=== PATIENT | female | born 1985 | race Caucasian/White ===

== ENCOUNTER 2020-02-03 12:35 | Emergency (ER) | payer OTHER, SELFPAY ==
--- NOTE | ~2020-02-03 | XR_ITS ---
XR lumbar spine min 4V 02/03/2020 14:06 Indication: Status post fall. Low back pain. Procedure: 5 views lumbar spine Comparison: No prior studies for comparison. Findings: Vertebral body heights are maintained. Mild disc narrowing at L5-S1. No fracture, subluxati on or dislocation. Mild levocurvature of the lumbar spine. No evidence for spondylolisthesis. Sacral foramen are symmetric. Impression: 1: Mild lumbar spondylosis. Reviewed, dictated and finalized at location A. Impression: 1: Mild lumbar spondylosis.
--- NOTE | ~2020-02-03 | XR_ITS ---
XR elbow LT min 3V 02/03/2020 14:06 Indication: Left elbow pain after recent fall Procedure: 4 views left elbow Comparison: No prior studies for comparison. Findings: No acute fracture or traumatic malalignment. No significant joint effusion. There is a bone island in the radius. No foreign bodies. There are small ossific densities ventral to the joint spac e, likely loose bodies from degenerative change or remote trauma. Impression: 1: No acute bone or joint abnormality. Reviewed, dictated and finalized at location A. Impression: 1: No acute bone or joint abnormality.
--- NOTE | ~2020-02-03 | XR_ITS ---
XR shoulder LT min 2V 02/03/2020 14:06 INDICATION: Left shoulder pain after recent fall PROCEDURE: 4 views left shoulder COMPARISON: No prior studies for comparison. FINDINGS: Fracture, dislocation or subluxation is not identified. There are mild degenerative changes of the acromioclavicular joint. The soft tissues appear within normal limits. No foreign bodies are identified. IMPRESSION: 1: NO ACUTE BONE OR JOINT ABNORMALITY IDENTIFIED. Reviewed, dictated and finalized at location A.
[2020-02-03 12:42] VITALS: BP 152/100; PULSE 81; RESP 18; TEMP 36.6; O2SAT 100
--- NOTE | 2020-02-03 13:26 | ED.FALL ---
HPI - Fall General Chief Complaint: Fall Stated Complaint: FELL OFF PORCH THURS - BACK/ARM PAIN Time Seen by Provider: 02/03/20 12:50 Source: patient Mode of arrival: ambulatory Limitations: no limitations History of Present Illness HPI Narrative: Patient is a 34-year-old female who presents to emergency department for evaluation after falling off her porch 3 days prior patient notes aching pain worse with activity and movement has not been seen for this complaint is taken [id number] medications with minimal improvement. Patient denies head injury syncope loss of consciousness or other complaints Related Data Allergies Allergy/AdvReac Type Severity Reaction Status Date / Time No Known Allergies Allergy Verified 02/03/20 12:45 Review of Systems Review of Systems: All systems reviewed & are unremarkable except as noted in HPI and below PMFSH Surgical History Surgical History History of appendectomy Social History Social History (Updated 02/03/20 @ 13:27 by Kirk Scott PA-C) Smoking status: Current every day smoker Gender identity (if verbalized by the patient): Female Exam Narrative: Exam Narrative: GENERAL: Well-appearing, well-nourished, and in no acute distress. HEAD: Normocephalic, atraumatic. EYES: PERRLA and EOMI. ENT: Nares clear, no rhinorrhea or epistaxis. Mucous membranes moist. CHEST: Clear to auscultation. No respiratory distress. No wheezes rales or rhonchi HEART: Regular rate and rhythm. No murmur heard. Normal peripheral pulses. EXTREMITIES: Tenderness of the left shoulder and left elbow joint no deformities noted. Small abrasion to the mid forearm. Midline tenderness of the lumbar spine no cervical or thoracic tenderness SKIN: Warm, dry, no rash. NEURO: No focal deficits. Alert and oriented x3. Cranial nerves II through XII grossly intact. normal speech and gait. PSYCH: Normal mood and affect. Course Course Emergency Course: Patient in the room in no distress aware of case findings treatment plan and diagnosis felt appropriate for outpatient reevaluation Vital Signs Vital signs: Vital Signs Temperature 97.8 F 02/03/20 12:42 Pulse Rate 81 02/03/20 12:42 Respiratory Rate 18 02/03/20 12:42 Blood Pressure 152/100 H 02/03/20 12:42 Pulse Oximetry 100 02/03/20 12:42 Temperature 97.8 F 02/03/20 12:42 Pulse Rate 81 02/03/20 12:42 Respiratory Rate 18 02/03/20 12:42 Blood Pressure 152/100 H 02/03/20 12:42 Pulse Oximetry 100 02/03/20 12:42 MDM - Fall MDM Narrative Medical decision making narrative: Patients injury or pain is consistent with musculoskeletal etiology. No signs of neurological or vascular compromise on exam. Compartments and tisues are soft without signs of compartment syndrome. Pain is felt appropriate for further evaluation on an outpatient basis. Imaging Data Radiologist's impression: ITS Impressions Shoulder X-Ray 02/03/20 14:09 IMPRESSION: 1: NO ACUTE BONE OR JOINT ABNORMALITY IDENTIFIED. Elbow X-Ray 02/03/20 14:10 Impression: 1: No acute bone or joint abnormality. Lumbar Spine X-Ray 02/03/20 14:13 Impression: 1: Mild lumbar spondylosis. Discharge Plan Discharge Clinical Impression: Injury of left shoulder, Injury of elbow, left, Acute low back pain Patient Disposition: Home, Self-Care Condition: Stable Instructions: Antibiotic Form, Contusion in Adults (ED) Additional Instructions: Follow up with your primary care doctor in 5-7 days for re-evaluation. Go to ER for worsening pain, vision changes, nausea/vomiting, fever/chills, weakness, chest pain, shortness of breath, numbness/tingling, slurred speech, difficulty walking, change in mental status etc. or any other concerns. Take any prescribed medications as directed. Prescriptions: New cyclobenzaprine 10 mg tablet 10 mg PO TID PRN (Reason: muscl
[2020-02-03 14:42] VITALS: BP 148/70; PULSE 80; RESP 20; O2SAT 99
== END 2020-02-03 14:45 | disposition home or self-care (01) ==
PROVIDERS: Emergency Provider Emergency Medicine
DX: S49.92XA Unspecified injury of left shoulder and upper arm, initial encounter (principal); S59.902A Unspecified injury of left elbow, initial encounter; S39.92XA Unspecified injury of lower back, initial encounter; F17.200 Nicotine dependence, unspecified, uncomplicated; M47.816 Spondylosis without myelopathy or radiculopathy, lumbar region; W17.89XA Other fall from one level to another, initial encounter
CPT/HCPCS: 72110; 73030; 73080; 99284

== ENCOUNTER 2020-05-10 17:13 | Emergency (ER) | payer OTHER, SELFPAY ==
--- NOTE | ~2020-05-10 | XR_ITS ---
EXAMINATION: XR elbow LT min 3V DATE: 05/10/2020 18:01 INDICATION: Left elbow pain. TECHNIQUE: 4 views of left elbow were obtained. COMPARISON: Left elbow radiograph 02/03/2020 FINDINGS: Bone alignment is normal. No fracture. There is a benign bone island in proximal radius. Th ere is mild elbow joint osteoarthritis. No elbow joint effusion. IMPRESSION: 1. Mild elbow joint osteoarthritis. Reviewed, dictated and finalized at location A.
[2020-05-10 17:18] VITALS: BP 147/90; PULSE 81; RESP 18; TEMP 36.3; O2SAT 100
[2020-05-10] MEDS: KETOROLAC (*BKC) 60 MG/2 ML VIAL IM (18:16)
--- NOTE | 2020-05-10 18:28 | ED.EXTPRO ---
HPI - Extremity Problem General Chief complaint: Extremity Problem,Nontraumatic Stated complaint: hands and arm tingling Time Seen by Provider: 05/10/20 17:30 Source: patient Mode of arrival: ambulatory Limitations: no limitations History of Present Illness HPI Narrative: Patient presents to the emergency department for left elbow pain x1 week. No known certain injury or trauma. Reports the pain starts in the elbow and radiates down the arm. Also reports she has tingling that starts in the elbow and radiates down the arm. Reports this is been happening intermittently over the last week. Pain is worse with movement and relieved with rest. Denies fever, erythema, edema, decreased range of motion or numbness. Related Data Allergies Allergy/AdvReac Type Severity Reaction Status Date / Time No Known Allergies Allergy Verified 05/10/20 17:22 Review of Systems Review of Systems: Narrative: CONSTITUTIONAL: Denies fever SKIN: Denies rash MUSCULOSKELETAL: Reports joint pain, and myalgia. NEUROLOGIC: Denies numbness All systems reviewed & are unremarkable except as noted in HPI and below PMFSH Social History Social History (Updated 05/10/20 @ 18:30 by Iram Quiroz PA-C) Smoking status: Current every day smoker Substance use: never Gender identity (if verbalized by the patient): Female Exam Narrative: Exam Narrative: GENERAL: Well-appearing, obese, and in no acute distress. HEAD: Normocephalic, atraumatic. EYES: EOMI. CHEST: Clear to auscultation. No respiratory distress. No wheezes rales or rhonchi HEART: Regular rate and rhythm. No murmur heard. Normal peripheral pulses. EXTREMITIES: Normal range of motion. No edema, erythema or warmth. Pain with active ROM in the left elbow. Normal radial pulses. Tender to palpation of the left lateral epicondyle. Positive Tinel sign on the left SKIN: Warm, dry, no rash. NEURO: No focal deficits. Alert and oriented x3. PSYCH: Normal mood and affect Course Vital Signs Vital signs: Vital Signs Temperature 97.4 F L 05/10/20 17:18 Pulse Rate 81 05/10/20 17:18 Respiratory Rate 18 05/10/20 17:18 Blood Pressure 147/90 H 05/10/20 17:18 Pulse Oximetry 100 05/10/20 17:18 Temperature 97.4 F L 05/10/20 17:18 Pulse Rate 81 05/10/20 17:18 Respiratory Rate 18 05/10/20 17:18 Blood Pressure 147/90 H 05/10/20 17:18 Pulse Oximetry 100 05/10/20 17:18 MDM - Extremity (Nontraumatic) MDM Narrative Medical decision making narrative: Patient presents the emergency department for left elbow pain x1 week. Also reports intermittent paresthesias from the left elbow into the fingers. Pain is worse with movement and relieved with rest. Left elbow x-ray shows osteoarthritis. No other acute findings. Patient is tender to palpation over the lateral epicondyle. Also reproduces pain with Tinel test. Seems consistent with a possible ulnar neuropathy. Or possible lateral epicondylitis. Patient instructed to rest, ice and take Tylenol or ibuprofen as needed for pain. Will be started on a steroid taper to see if that helps as well. She is to follow-up with primary care doctor. She was given warnings to return to the ER Imaging Data Radiologist's impression: ITS Impressions Elbow X-Ray 05/10/20 18:05 IMPRESSION: 1. Mild elbow joint osteoarthritis. Critical Care Time Critical Care Time Critical Care Time: No Discharge Plan Discharge Clinical Impression: Left elbow pain Patient Disposition: Home, Self-Care Condition: Stable Instructions: Tendinitis (ED) Additional Instructions: Return to the emergency department if you experience fever, redness and swelling of your arm, numbness, or any other symptoms that are concerning to you Rest. Ice to the area. Tylenol or ibuprofen as needed for pain. Take steroid taper as prescribed Follow-up with primary care doctor Prescriptions: New prednisone 10 mg tablet 20 mg PO DAILY 14 Da
== END 2020-05-10 19:06 | disposition home or self-care (01) ==
PROVIDERS: Emergency Provider Emergency Medicine
DX: M25.522 Pain in left elbow (principal); F17.200 Nicotine dependence, unspecified, uncomplicated
CPT/HCPCS: 73080; 96372; 99283; J1885

== ENCOUNTER 2021-05-31 14:04 | Emergency (ER) | payer OTHER, SELFPAY ==
--- NOTE | ~2021-05-31 | XR_ITS ---
EXAMINATION: XR lumbar spine min 4V DATE: 05/31/2021 14:49 INDICATION: Low back pain. TECHNIQUE: 5 views of lumbar spine were obtained. COMPARISON: Lumbar spine radiograph 02/03/2020 FINDINGS: There is 5 degrees levocurvature of thoracolumbar spine. Vertebral body heights and interve rtebral disc heights are normal. There are endplate osteophytes at most levels. There is moderate fac et joint osteoarthritis bilaterally at L5-S1. IMPRESSION: 1. Mild lumbar spondylosis. Reviewed, dictated and finalized at location A. IMPRESSION: 1. Mild lumbar spondylosis.
[2021-05-31 14:12] VITALS: BP 140/75; PULSE 84; RESP 16; TEMP 36.6; O2SAT 100
--- NOTE | 2021-05-31 14:35 | PC.NURSE ---
Pt to bathroom with steady gait.
--- NOTE | 2021-05-31 14:40 | PC.NURSE ---
pt to radiology
[2021-05-31 14:52] LABS: Add Urine Microscopic? YES; Appearance Urine Clear (Clear); Bilirubin Urine Negative (Negative); Blood Urine 3+ (Negative); Color Urine Straw (Yellow); Glucose Urine UA Negative (Negative); Ketones Urine Negative (Negative); Leukocyte Esterase Ur Negative LEU/UL (Negative); Nitrate Urine Negative (Negative); Protein Urine Negative (Negative); RBC Urine 0-2 /hpf (0-2); Specific Grav Ur 1.005 (1.001-1.035); Squamous Epithelial Cell Urine Rare /hpf (Few); Urobilinogen Urine Negative mg/dL (<2.0); WBC Urine 0-3 /hpf
--- NOTE | 2021-05-31 16:35 | ED.BACK ---
HPI - Back Pain/Injury General Chief Complaint: Back Pain/Injury Stated Complaint: sciata pain x 3weeks Time Seen by Provider: 05/31/21 14:22 Source: patient Mode of arrival: ambulatory Limitations: no limitations History of Present Illness HPI Narrative: 36-year-old with no major medical problems here with complaints of left lower back pain radiating into her left leg. She denies trauma. She denies any bladder or bowel incontinence. No history of fever or chills. MD elicited complaint: back pain Onset (ago): day(s) (3) Timing: constant Severity: moderate Similar Symptoms Previously: Yes Location: lumbar spine Radiation: left upper leg Exacerbating factors: none Relieving factors: none Associated symptoms: denies other symptoms Related Data Allergies Allergy/AdvReac Type Severity Reaction Status Date / Time No Known Allergies Allergy Verified 05/10/20 17:22 Review of Systems Review of Systems: All systems reviewed & are unremarkable except as noted in HPI and below Constitutional: Constitutional: Reports no additional constitutional complaints Eyes: Eyes: Reports no additional eye complaints ENT: Reports system reviewed and no additional complaints, except as documented Cardiovascular: Cardiovascular: Reports no additional cardiovascular complaints Respiratory: Respiratory: Reports no additional respiratory complaints Gastrointestinal: Gastrointestinal: Reports no additional gastrointestinal complaints Musculoskeletal: Musculoskeletal: Reports as per HPI Neurologic: Reports system reviewed and no additional complaints, except as documented PMFSH Surgical History Surgical History History of appendectomy Social History Social History Smoking status: Current every day smoker Substance use: never Gender identity (if verbalized by the patient): Female Exam Narrative: GENERAL: Well-appearing, well-nourished, and in no acute distress. HEAD: Normocephalic, atraumatic. EYES: PERRLA and EOMI. NECK: Supple. CHEST: Clear to auscultation. No respiratory distress. HEART: Regular rate and rhythm. No murmur heard. Normal peripheral pulses. ABDOMEN: Soft, nontender, nondistended, normal active bowel sounds. EXTREMITIES: Normal range of motion. No edema. SLR negative SKIN: Warm, dry, no rash. NEURO: No focal deficits. Alert and oriented x3. PSYCH: Normal mood and affect. Course Vital Signs Vital signs: Vital Signs Temperature 36.6 C 05/31/21 14:12 Pulse Rate 84 05/31/21 14:12 Respiratory Rate 16 05/31/21 14:12 Blood Pressure 140/75 05/31/21 14:12 Pulse Oximetry 100 05/31/21 14:12 Temperature 36.6 C 05/31/21 14:12 Pulse Rate 84 05/31/21 14:12 Respiratory Rate 16 05/31/21 14:12 Blood Pressure 140/75 05/31/21 14:12 Pulse Oximetry 100 05/31/21 14:12 MDM - Back Pain/Injury Lab Data Labs: Lab Results 05/31/21 Range/Units 14:40 Urine Color Straw (Yellow) Urine Appearance Clear (Clear) Urine pH 6.0 (5.0-9.0) Ur Specific [place] 1.005 (1.001-1.035) Urine Protein Negative (Negative) mg/dL Urine Glucose (UA) Negative (Negative) mg/dL Urine Ketones Negative (Negative) mg/dL Ur Blood (Man) 3+ H (Negative) Urine Nitrate Negative (Negative) Urine Bilirubin Negative (Negative) Urine Urobilinogen Negative (<2.0) mg/dL Leukocyte Esterase Rfl Negative (Negative) MATT/UL Urine RBC 0-2 (0-2) /hpf Urine WBC 0-3 /hpf Ur Squamous Epith Cells Rare (Few) /hpf UCG Bedside Result Negative Reference Range: Negative Imaging Data Radiologist's impression: ITS Impressions Lumbar Spine X-Ray 05/31/21 14:52 IMPRESSION: 1. Mild lumbar spondylosis. Discharge Plan Discharge Clinical Impression: Lumbar radiculopathy Patient Dis
[2021-05-31 16:50] VITALS: BP 154/75; PULSE 72; RESP 18; O2SAT 99
== END 2021-05-31 16:50 | disposition home or self-care (01) ==
PROVIDERS: Emergency Provider Family Medicine
DX: M47.26 Other spondylosis with radiculopathy, lumbar region (principal); F17.200 Nicotine dependence, unspecified, uncomplicated
CPT/HCPCS: 72110; 81001; 81025; 99283

== ENCOUNTER 2021-07-31 17:29 | Emergency (ER) | payer OTHER, SELFPAY ==
[2021-07-31] VITALS (10 sets, daily range): BP systolic 115–150; BP diastolic 47–94; PULSE 58–88; RESP 16–23; TEMP 36.6; O2SAT 97–100
--- NOTE | ~2021-07-31 | CT_ITS ---
EXAMINATION: CT abdomen pelvis w con DATE: 07/31/2021 20:59 INDICATION: Perirectal abscess. TECHNIQUE: Computed tomography (CT) of the abdomen and pelvis was performed with 100 mL Omnipaque 350 intravenous contrast. Automated exposure control and iterative reconstruction technique were employe d. The dose-length product was 1782.71 mGy-cm. COMPARISON: None. FINDINGS: The visualized portions of the lung bases demonstrate mild atelectasis. No pleural effusion . The heart size is normal. No pericardial effusion. The liver, gallbladder, spleen, pancreas, adrena l glands, and kidneys are normal. There are no dilated loops of bowel. The appendix is not visualized . There is a 2.1 x 1.1 x 2.0 cm perianal abscess. There are no pathologically enlarged lymph nodes. T here is no free intraperitoneal fluid. There is moderate thoracic spondylosis and mild lumbar spondyl osis. IMPRESSION: 1. 2.1 x 1.1 x 2.0 cm perianal abscess. Reviewed, dictated and finalized at location A. [employer]AFF ENGINEER
--- NOTE | 2021-07-31 19:37 | ED.GENADULT ---
HPI - General Adult General Chief complaint: Skin/Abscess/Foreign Body Stated complaint: possible abcess Time Seen by Provider: 07/31/21 18:37 Source: patient Mode of arrival: ambulatory Limitations: no limitations History of Present Illness HPI narrative: Patient presents for evaluation of painful swollen lesion to the perineum for the last 2 days. She states she feels a lump in the affected area. She denies any fever, chills, nausea, and vomiting. She reports a burning discomfort in the area with urination. She also notes worsening discomfort when she attempts to have a bowel movement. She is not sure if there is any drainage from the affected area as she is currently menstruating. She does not have a history of similar symptoms in the affected area. However she has had pilonidal cysts in the past. She is not diabetic. She has not tried any therapies to assist with her symptoms. No additional complaints or concerns Related Data Allergies Allergy/AdvReac Type Severity Reaction Status Date / Time No Known Allergies Allergy Verified 07/31/21 17:44 Review of Systems Review of Systems: CONSTITUTIONAL: Denies fever, chills, or sweats. EYES: Denies visual changes, redness, or discharge. ENT: Denies rhinorrhea, congestion, sore throat, or otalgia. CARDIOVASCULAR: Denies chest pain, palpitations, or edema. RESPIRATORY: Denies cough or dyspnea. GASTROINTESTINAL: Denies abdominal pain, nausea, vomiting, or diarrhea. GENITOURINARY: Denies dysuria or hematuria. SKIN: Reports painful swollen lesion to the perineum MUSCULOSKELETAL: Denies back pain, joint pain, or myalgia. NEUROLOGIC: Denies headache, numbness, dizziness, or weakness. PSYCHIATRIC: Denies anxiety or depression. [facility] Surgical History Surgical History History of appendectomy Family History Family History Mother No pertinent past medical history Social History Social History Smoking status: Current every day smoker Substance use: never Gender identity (if verbalized by the patient): Female Sexual Orientation (if Verbalized by the Patient): Straight or Heterosexual Spiritual care concerns: No Exam Narrative: GENERAL: Well-appearing, well-nourished, and in no acute distress. HEAD: Normocephalic, atraumatic. EYES: PERRLA and EOMI. ENT: Nares clear, no rhinorrhea or epistaxis. Mucous membranes moist. Oropharynx without tonsillar hypertrophy exudate or other lesions. Bilateral TMs pearly dos santos nonbulging NECK: Supple. No adenopathy or masses. No carotid bruits or JVD CHEST: Clear to auscultation. No respiratory distress. No wheezes rales or rhonchi HEART: Regular rate and rhythm. No murmur heard. Normal peripheral pulses. ABDOMEN: Soft, nontender, nondistended, normal active bowel sounds. EXTREMITIES: Normal range of motion. No edema. SKIN: Approximately 2 cm raised fluctuant lesion that appears to originate at anal orifice which is tender to palpation. Exam is somewhat limited 2/2 pain. Skin is warm, dry, no rash. NEURO: No focal deficits. Alert and oriented x3. PSYCH: Normal mood and affect. Course Course Emergency Course: This is a 36-year-old female who presented with complaints of painful swollen lesion to the perineum. She initially had what appeared to be a thrombosed hemorrhoid versus cutaneous abscess of the perianal region. CT imaging was obtained to ensure she did not have a perirectal abscess. CT did confirm the presence of perianal abscess. I&D was performed and patient tolerated well. Wound was packed. Advised on oral antibiotic therapy and wound care. She should follow-up outpatient for further evaluation and treatment return for worsening symptoms. Patient agreed with plan of care. Vital Signs Vital signs: Vital Signs Temperature 36.6 C 07/31/21
[2021-07-31] MEDS: MORPHINE SULFATE (*CRX) 2 MG/ML INJ IV PUSH (20:13)
[2021-07-31 20:17] LABS: Basophils Absolute Auto 0.1 K/mm3 (0.0-0.1); Basophils Percent Auto 0.8 % (0.2-1.2); Eosinophils Absolute Auto 2.1 K/mm3 (0-0.3); Eosinophils Percent Auto 14.2 % (0-4.4); Hematocrit 40.2 % (37.0-47.0); Hemoglobin 13.6 g/dL (12.0-15.0); Immature Granulocyte Absolute 0.04 K/mm3 (0.00-0.031); Immature Granulocyte Percent A 0.3 % (0-0.5); Lymphocytes Absolute Auto 2.92 K/mm3 (0.9-3.2); Lymphocytes Percent Auto 20.2 % (18.3-44.2); Mean Corpuscular HGB Conc 33.8 g/dl (32-36); Mean Corpuscular Hemoglobin 30.4 pg (26-34); Mean Corpuscular Volume 89.7 fl (80-100); Mean Platelet Volume 9.6 fl (7.4-10.4); Monocytes Absolute Auto 0.8 K/mm3 (0.1-0.6); Monocytes Percent Auto 5.5 % (2.6-8.5); Neutrophils Absolute Auto 8.6 K/mm3 (1.3-6.7); Platelet Count Result 284 k/mm3 (150-375); Red Blood Count 4.48 M/mm3 (4.2-5.4); Red Cell Distribution Width 13.2 % (11.5-14.5); White Blood Count 14.5 K/mm3 (4.5-10.0)
[2021-07-31 20:28] LABS: Alanine Aminotransferase 11 U/L (4-35); Albumin Level 3.8 g/dL (3.5-5.1); Alkaline Phosphatase 90 U/L (38-126); Anion Gap 8 mmol/L (8-16); Aspartate Amino Transferase 17 U/L (14-36); Bilirubin,Total 0.3 mg/dL (0.2-1.3); Blood Urea Nitrogen 9 mg/dL (7-17); Calcium 8.8 mg/dL (8.4-10.2); Carbon Dioxide 25 mmol/L (22-30); Chloride 106 mmol/L (98-107); Estimated CRCL calculation 127 ml/min; Estimated Glomerular Filt Rate > 60; Glucose 93 mg/dL (65-110); Potassium 3.7 mmol/L (3.4-5.0); Sodium 139 mmol/L (137-145)
[2021-07-31 20:34] LABS: Add Urine Microscopic? YES; Appearance Urine Clear (Clear); Bacteria Urine Trace /hpf; Bilirubin Urine Negative (Negative); Blood Urine 3+ (Negative); Color Urine Yellow (Yellow); Glucose Urine UA Negative (Negative); Ketones Urine Negative (Negative); Leukocyte Esterase Ur Negative LEU/UL (Negative); Nitrate Urine Negative (Negative); Protein Urine Negative (Negative); RBC Urine 21-50 /hpf (0-2); Squamous Epithelial Cell Urine Moderate /hpf (Few); Urobilinogen Urine Negative mg/dL (<2.0); WBC Urine 0-3 /hpf
[2021-07-31 20:41] LABS: Specific Grav Ur 1.004 (1.001-1.035)
[2021-07-31] MEDS: HYDROcodone/acetaminophen (*CRX) 5-325 MG TABLET 2 TAB PO (22:30)
[2021-07-31] MEDS: CEPHALEXIN 500 MG CAPSULE PO (22:30)
== END 2021-07-31 22:40 | disposition home or self-care (01) ==
PROVIDERS: Emergency Provider Nurse Practitioner; PCP Emergency Medicine
DX: K61.0 Anal abscess (principal); F17.200 Nicotine dependence, unspecified, uncomplicated
CPT/HCPCS: 36415; 46050; 74177; 80053; 81001; 81025; 85025; 87070; 87077; 87186; 87205; 96374; 99284; A9270; J2270; Q9967

== ENCOUNTER 2021-11-11 15:14 | Outpatient (CLI) | payer OTHER, SELFPAY ==
--- NOTE | ~2021-11-11 | XR_ITS ---
XR elbow LT min 3V DATE: 11/11/2021 16:07 INDICATION: Left lateral elbow pain from a fall one year ago, radiating to forearm TECHNIQUE: 5 views COMPARISON: None FINDINGS: No fracture or dislocation or joint effusion. No periosteal reaction or bone destruction. IMPRESSION: No significant abnormality Reviewed, dictated and finalized at location A. IMPRESSION: No significant abnormality
--- NOTE | ~2021-11-11 | XR_ITS ---
XR hip LT min 2V 11/11/2021 16:07 Indication: Left hip pain Procedure: 3 views left hip Comparison: No prior studies for comparison. Findings: No fracture, subluxation or dislocation. Moderate osteoarthritis of the left hip. No signif icant soft tissue abnormality. There is anatomic alignment. No foreign bodies. Impression: 1: Moderate osteoarthritis of the left hip. Reviewed, dictated and finalized at location B. Impression: 1: Moderate osteoarthritis of the left hip.
--- NOTE | ~2021-11-11 | XR_ITS ---
EXAMINATION: XR chest 2V 11/11/2021 16:06 INDICATION: Dyspnea PROCEDURE: 2 view chest COMPARISON: No prior studies for comparison. FINDINGS: The lungs are clear. The cardiomediastinal silhouette is within normal limits. There are no pleural effusions. There is no pneumothorax suspected. IMPRESSION: 1: NO ACUTE CARDIOPULMONARY DISEASE. Reviewed, dictated and finalized at location B.
--- NOTE | ~2021-11-11 | XR_ITS ---
XR lumbar spine 2-3V DATE: 11/11/2021 16:07 INDICATION: Chronic low back pain since fall one year ago, worsening TECHNIQUE: AP, lateral, coned lateral lumbosacral views COMPARISON: 05/2022 lumbar spine FINDINGS: There is mild levoscoliosis of the thoracolumbar spine. Normal alignment of the lumbar vertebrae. No fracture or bone destruction. The included lower thoraci c and lumbar pedicles are intact. There is moderate degenerative disc disease at L1-2 and mild to moderate degenerative disc disease at L4-3 and L3-4. There is mild degenerative disease at L4-5. The sacroiliac joints are intact. IMPRESSION: Mild to moderate degenerative disc disease Reviewed, dictated and finalized at location A.
[2021-11-11 15:45] LABS: Hematocrit 42.8 % (37.0-47.0); Mean Corpuscular HGB Conc 32.7 g/dl (32-36); Mean Corpuscular Hemoglobin 29.5 pg (26-34); Mean Corpuscular Volume 90.3 fl (80-100); Mean Platelet Volume 9.6 fl (7.4-10.4); Platelet Count Result 286 k/mm3 (150-375); Red Blood Count 4.74 M/mm3 (4.2-5.4); Red Cell Distribution Width 13.3 % (11.5-14.5); White Blood Count 14.7 K/mm3 (4.5-10.0)
[2021-11-11 15:55] LABS: Alanine Aminotransferase 14 U/L (4-35); Alkaline Phosphatase 86 U/L (38-126); Anion Gap 7 mmol/L (8-16); Aspartate Amino Transferase 18 U/L (14-36); Bilirubin,Total 0.5 mg/dL (0.2-1.3); Blood Urea Nitrogen 12 mg/dL (7-17); Calcium 8.5 mg/dL (8.4-10.2); Carbon Dioxide 25 mmol/L (22-30); Chloride 105 mmol/L (98-107); Cholesterol 137 mg/dL (0-200); Estimated Glomerular Filt Rate > 60; Glucose 163 mg/dL (65-110); HDL Direct 37 mg/dL; Potassium 3.6 mmol/L (3.4-5.0); Sodium 137 mmol/L (137-145); Triglycerides 88 mg/dL (<150)
[2021-11-11 15:56] LABS: Rheumatoid Factor < 8.6 IU/ML (<12)
[2021-11-11 16:05] LABS: LDL Cholesterol Direct 83 mg/dL
[2021-11-11 16:06] LABS: Creatinine Urine 117.7 mg/dL
[2021-11-11 16:10] LABS: MALB Creatinine Ratio 5.4 mg/g (0-30); Microalbumin Urine Random 6.4 mg/L (0-16.7)
[2021-11-11 16:24] LABS: Thyroid Stimulating Hormone 0.961 uIU/mL (0.465-4.680)
[2021-11-11 16:25] LABS: Erythrocyte Sedimentation Rate 16 mm/hr (0-20)
[2021-11-11 16:30] LABS: Free T4 Free Thyroxine 1.13 ng/mL (0.78-2.19); Vitamin D 25 Hydroxy 17.7 ng/mL
[2021-11-11 17:18] LABS: Hemoglobin A1C 4.8 % (<5.7)
== END 2021-11-11 15:15 | disposition home or self-care (01) ==
LOC: ANHLAB 15:17
PROVIDERS: PCP Emergency Medicine; Visit Provider Emergency Medicine
DX: F32.9 Major depressive disorder, single episode, unspecified (principal); R53.83 Other fatigue; M51.36 Other intervertebral disc degeneration, lumbar region; M16.12 Unilateral primary osteoarthritis, left hip
CPT/HCPCS: 36415; 71046; 72100; 73080; 73502; 80053; 80061; 82043; 82306; 83036; 84439; 84443; 85027; 85652; 86038; 86430

== ENCOUNTER 2021-12-09 20:57 | Emergency (ER) | payer OTHER, SELFPAY ==
[2021-12-09 21:05] VITALS: BP 119/67; PULSE 76; RESP 18; TEMP 36.4; O2SAT 100
--- NOTE | 2021-12-09 22:42 | ED.URI ---
HPI - URI/Sore Throat General Chief Complaint: Upper Respiratory Infection Stated Complaint: headache, congestion, sore throat, nausea Time Seen by Provider: 12/09/21 22:37 Source: patient Mode of arrival: ambulatory Limitations: no limitations History of Present Illness HPI Narrative: 36-year-old female presents emergency room secondary to a lot of nasal congestion and cough. She is got pressure in her frontal sinuses. Is been gone for several days. No documented temperature. She is vaccinated for COVID. 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 No one else at home has been sick. Occasionally gets some nausea associated with this. No chronic pulmonary issues of been noted. Related Data Home Medications Medication Instructions Recorded Confirmed ergocalciferol (vitamin D2) 12/09/21 Allergies Allergy/AdvReac Type Severity Reaction Status Date / Time No Known Allergies Allergy Verified 07/31/21 17:44 Review of Systems Review of Systems: CONSTITUTIONAL: Denies fever, chills, or sweats. EYES: Denies visual changes, redness, or discharge. ENT: Patient is complaining of a lot of rhinorrhea and congestion as well as pain over her frontal maxillary sinuses. She got a mild sore throat no earache CARDIOVASCULAR: Denies chest pain, palpitations, or edema. RESPIRATORY: Occasional cough it is more postnasal drip and she is coughing it up. No blood in it. GASTROINTESTINAL: Denies abdominal pain, nausea, vomiting, or diarrhea. GENITOURINARY: Denies dysuria or hematuria. SKIN: Denies rash or itching. MUSCULOSKELETAL: Denies back pain, joint pain, or myalgia. NEUROLOGIC: Denies headache, numbness, or weakness. PSYCHIATRIC: Denies anxiety or depression. PMFSH Surgical History Surgical History History of appendectomy Family History Family History Mother No pertinent past medical history Social History Social History Smoking status: Current every day smoker Substance use: never Gender identity (if verbalized by the patient): Female Sexual Orientation (if Verbalized by the Patient): Straight or Heterosexual Spiritual care concerns: No Exam Narrative: APPEARANCE: Well appearing, no pain or distress, well-nourished. Head normocephalic and atraumatic. EYES: PERRLA/EOMI, conjunctivae very clear. NOSE: Clear nasal rhinorrhea. Tenderness to palpation of the frontal maxillary sinuses. EARS:TMS clear Ирина [place], with good light reflex. THROAT: Posterior pharynx is erythematous with no exudates NECK: Supple. No adenopathy, no masses. RESPIRATORY: Airway patent, respirations nonlabored. Clear to auscultation bilaterally, no rales, rhonchi, wheezing. CARDIOVASCULAR: Regular rate and rhythm without murmurs, rubs, or gallops. ABDOMINAL: Soft, nontender, nondistended, no hepatosplenomegaly Musculoskeletal: Moves all extremities. Strength/ROM intact, No edema, No calf tenderness. NEURO: Alert. Cranial nerves II through XII intact. Normal gait. Good coordination. Nonfocal examination. SKIN:: Warm, dry. Normal Color PSYCHIATRIC: Normal affect/mood, normal interaction Course Vital Signs Vital signs: Vital Signs Temperature 97.6 F 12/09/21 21:05 Pulse Rate 76 12/09/21 21:05 Respiratory Rate 18 12/09/21 21:05 Blood Pressure 119/67 12/09/21 21:05 Pulse Oximetry 100 12/09/21 21:05 Temperature 97.6 F 12/09/21 21:05 Pulse Rate 76 12/09/21 21:05 Respiratory Rate 18 12/09/21 21:05 Blood Pressure 119/67 12/09/21 21:05 Pulse Oximetry 100 12/09/21 21:05 MDM - URI/Sore Throat MDM Narrative Medical decision making narrative: Rapid strep and influenza are both negative. This more subacute sinusitis. Put her on some steroids as well as Claritin-D does help with her symptoms. Lab Data Attestation: I reviewed the patient's lab results. Labs
== END 2021-12-09 23:00 | disposition home or self-care (01) ==
LOC: ANHED 22:54
PROVIDERS: Emergency Provider Emergency Medicine; PCP Emergency Medicine
DX: J01.10 Acute frontal sinusitis, unspecified (principal); J00 Acute nasopharyngitis [common cold]; F17.200 Nicotine dependence, unspecified, uncomplicated
CPT/HCPCS: 87081; 87804; 87880; 99283

== ENCOUNTER 2022-09-09 16:01 | Emergency (ER) | payer OTHER, SELFPAY ==
--- NOTE | ~2022-09-09 | CT_ITS ---
EXAMINATION: CT abdomen pelvis wo con DATE: 09/09/2022 17:04 INDICATION: Right flank pain, hematuria, urinary frequency TECHNIQUE: Computed tomography (CT) of the abdomen and pelvis was performed without intravenous contr ast. Automated exposure control and iterative reconstruction technique were employed. Exam dose: 169 1.22 mGy-cm total exam DLP. COMPARISON: 07/2021 CT abdomen pelvis FINDINGS: The lung bases are clear. Normal heart size. No pericardial or pleural effusion. The liver, gallbladder, bile ducts, spleen, pancreas and pancreatic duct are unremarkable. Normal mor phology of the adrenal glands. No renal mass lesion or urinary tract calculus or hydroureteronephrosis is evident. Normal caliber of the abdominal aorta. No intraperitoneal or retroperitoneal or pelvic mass lesion or adenopathy or ascites. The urinary bladder and uterus are unremarkable. There is an approximately 3.2 x 4 cm cystic lesion o n the left ovary. No bowel obstruction, bowel wall thickening, pneumatosis or intraperitoneal free air. Normal caliber of the abdominal aorta. No intraperitoneal or retroperitoneal or pelvic mass lesion or adenopathy or ascites. Small fat-containing umbilical hernia. Degenerative change of the lower thoracic and to a lesser extent lumbar spine. 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 IMPRESSION: 3.2 x 4 cm cystic lesion of the left ovary; pelvic ultrasound may be helpful for further evaluation Reviewed, dictated and finalized at [facility]. Reviewed, dictated and finalized at location A. RIAL LIAISON
[2022-09-09 16:19] VITALS: BP 160/102; PULSE 98; RESP 16; TEMP 37; O2SAT 99
[2022-09-09 16:30] LABS: Basophils Absolute Auto 0.1 K/mm3 (0.0-0.1); Basophils Percent Auto 0.4 % (0.2-1.2); Eosinophils Absolute Auto 0.2 K/mm3 (0-0.3); Eosinophils Percent Auto 1.6 % (0-4.4); Hematocrit 43.9 % (37.0-47.0); Hemoglobin 14.2 g/dL (12.0-15.0); Immature Granulocyte Absolute 0.06 K/mm3 (0.00-0.031); Immature Granulocyte Percent A 0.4 % (0-0.5); Lymphocytes Absolute Auto 2.29 K/mm3 (0.9-3.2); Lymphocytes Percent Auto 15.6 % (18.3-44.2); Mean Corpuscular HGB Conc 32.3 g/dl (32-36); Mean Corpuscular Hemoglobin 29.5 pg (26-34); Mean Corpuscular Volume 91.1 fl (80-100); Mean Platelet Volume 9.1 fl (7.4-10.4); Monocytes Absolute Auto 0.7 K/mm3 (0.1-0.6); Neutrophils Absolute Auto 11.3 K/mm3 (1.3-6.7); Platelet Count Result 291 k/mm3 (150-375); Red Blood Count 4.82 M/mm3 (4.2-5.4); White Blood Count 14.7 K/mm3 (4.5-10.0)
[2022-09-09 16:32] LABS: Appearance Urine Clear (Clear); Bilirubin Urine Negative (Negative); Blood Urine 1+ (Negative); Color Urine Yellow (Yellow); Glucose Urine UA Negative (Negative); Ketones Urine Negative (Negative); Leukocyte Esterase Ur Negative LEU/UL (Negative); Nitrate Urine Negative (Negative); Protein Urine Negative (Negative); Specific Grav Ur 1.015 (1.001-1.035); Urobilinogen Urine 0.2 mg/dL (<2.0)
[2022-09-09 16:37] LABS: RBC Urine 0-2 /hpf (0-2); Squamous Epithelial Cell Urine Rare /hpf (Few); WBC Urine 0-3 /hpf
[2022-09-09 16:38] LABS: Add Urine Microscopic? YES
[2022-09-09 16:51] LABS: Alanine Aminotransferase 17 U/L (6-35); Albumin Level 3.9 g/dL (3.5-5.1); Alkaline Phosphatase 79 U/L (38-126); Anion Gap 1 mmol/L (8-16); Aspartate Amino Transferase 24 U/L (14-36); Bilirubin,Total 0.2 mg/dL (0.2-1.3); Blood Urea Nitrogen 8 mg/dL (7-17); Calcium 8.5 mg/dL (8.4-10.2); Carbon Dioxide 30 mmol/L (22-30); Chloride 103 mmol/L (98-107); Estimated CRCL calculation 131 ml/min; Estimated Glomerular Filt Rate > 60; Glucose 95 mg/dL (65-110); Potassium 4.2 mmol/L (3.4-5.0); Sodium 134 mmol/L (137-145)
--- NOTE | 2022-09-09 16:55 | ED.FEMALEGU ---
HPI - Female Genitourinary General Chief complaint: Urogenital-Female Stated complaint: flank pain, urinary frequency Time Seen by Provider: 09/09/22 16:19 History of Present Illness HPI Narrative: 37-year-old female presented to the emergency department for evaluation of right flank pain that has been ongoing for approximately last 4 days. Patient states that she did attempt to seek follow-up with her primary care physician but she was referred to the emergency department. Patient states that the flank pain is worsened with urination. Patient also does report some suprapubic pain and some pain with urination. Patient denies any fevers nausea vomiting or diarrhea. Patient states that she does suspect she has a prior history of undiagnosed kidney stones. Patient was seen at an outside hospital approximately 7 years ago and nothing was seen on the CT scan. Related Data Home Medications Medication Instructions Recorded Confirmed sertraline 25 mg tablet 25 mg PO DAILY 09/09/22 09/09/22 Allergies Allergy/AdvReac Type Severity Reaction Status Date / Time No Known Allergies Allergy Verified 09/09/22 16:18 Review of Systems Review of Systems: CONSTITUTIONAL: Denies fever, chills, or sweats. EYES: Denies visual changes, redness, or discharge. ENT: Denies rhinorrhea, congestion, sore throat, or otalgia. CARDIOVASCULAR: See HPI RESPIRATORY: Denies cough or dyspnea. GASTROINTESTINAL: Denies abdominal pain, nausea, vomiting, or diarrhea. GENITOURINARY: Denies dysuria or hematuria. SKIN: Denies rash or itching. MUSCULOSKELETAL: Denies back pain, joint pain, or myalgia. NEUROLOGIC: Denies headache, numbness, or weakness. PMFSH Surgical History Surgical History History of appendectomy Family History Family History Mother No pertinent past medical history Social History Social History Smoking status: Current every day smoker Substance use: never Gender identity (if verbalized by the patient): Female Sexual Orientation (if Verbalized by the Patient): Straight or Heterosexual Spiritual care concerns: No Exam Narrative: APPEARANCE: Well appearing, no pain, no distress, well-nourished. HEAD: normocephalic, atraumatic. EYES: PERRLA/EOMI, conjunctivae clear. NOSE: Normal no drainage NECK: Supple. No adenopathy, no masses. RESPIRATORY: Airway patent, respirations nonlabored. Clear to auscultation bilaterally, no rales, rhonchi, wheezing. CARDIOVASCULAR: Regular rate and rhythm without murmurs rubs or gallops. ABDOMINAL: Soft, nontender, nondistended, normal bowel sounds MUSCULOSKELETAL: Moves all extremities. Strength/ROM intact, No edema, No calf tenderness. NEURO: Alert. Cranial nerves II through XII intact. Grossly intact SKIN: Warm, dry. Normal Color Course Course Emergency Course: Patient was afebrile but does have a leukocytosis of 14.7. Patient's CMP is similar to her baseline. UA does show evidence of hematuria but no evidence of infection. CT scan was negative for visualized ureteral calculi. CT scan did show evidence of a left-sided ovarian cyst. This was less than 5 cm. Patient does have an TOWER SUPERVISOR that she does have follow-up with. The left-sided ovarian cyst does not correlate with the patient's symptoms I feel this was an incidental finding. While patient does have hematuria with no evidence of infection and no evidence of ureteral calculi I do not feel she has a kidney stone at this time. Remaining differential diagnosis does include musculoskeletal injury. Patient was updated on the results of the imaging and suspected diagnosis. All questions concerns were addressed. Patient was informed of close follow-up with TOWER SUPERVISOR and also on reasons to return to the primary care physician or to the emergency department. Patient was well-appearing
[2022-09-09 18:31] VITALS: BP 108/68; PULSE 62; RESP 18; O2SAT 98
== END 2022-09-09 18:32 | disposition home or self-care (01) ==
PROVIDERS: Emergency Provider Emergency Medicine; PCP Emergency Medicine
DX: R10.9 Unspecified abdominal pain (principal); F17.200 Nicotine dependence, unspecified, uncomplicated; N83.202 Unspecified ovarian cyst, left side
CPT/HCPCS: 36415; 74176; 80053; 81001; 81025; 85025; 99284

== ENCOUNTER 2022-09-15 14:09 | Outpatient (CLI) | payer OTHER, SELFPAY ==
--- NOTE | ~2022-09-15 | US_ITS ---
EXAMINATION: US pelvic complete DATE: 09/15/2022 14:48 INDICATION: Left ovarian cyst. TECHNIQUE: Multiple transabdominal sonographic images of the pelvis were obtained. COMPARISON: CT abdomen and pelvis 09/09/2022, 07/31/2021 FINDINGS: The uterus measures 10.1 x 5.7 x 4.0 cm. There is no free fluid in the pelvis. The endometrial comple x is not well visualized. The right ovary measures 2.0 x 2.2 x 2.4 cm. The left ovary measures 3.9 x 4.4 x 3.1 cm. There is a 3.5 cm cyst in left ovary. There is normal vascular flow in the ovaries. IMPRESSION: 1. 3.5 cm cyst in left ovary, likely a follicular cyst. Reviewed, dictated and finalized at location [facility]. STICS DIRECTOR
--- NOTE | ~2022-09-15 | US_ITS ---
Renal-Bladder ultrasound Clinical History: Hematuria Technique: Real-time sonographic imaging of the kidneys and urinary bladder was performed. Findings: The right kidney measures 11.6 cm in length and the left kidney measures 11.8 cm. There is no hydronephrosis or renal calculus identified. Renal cortical echogenicity is within normal limits. No renal mass lesion is identified. The urinary bladder is moderately distended at the time of this exam. No intraluminal echoes are iden tified. No abnormal wall thickening is seen. Impression: Unremarkable ultrasound of the kidneys and urinary bladder. Reviewed, dictated and finalized at location M. L MACHINE BINDERY OPERATOR Impression: Unremarkable ultrasound of the kidneys and urinary bladder.
== END 2022-09-15 14:10 | disposition home or self-care (01) ==
PROVIDERS: PCP Emergency Medicine; Visit Provider Emergency Medicine
DX: N83.202 Unspecified ovarian cyst, left side (principal)
CPT/HCPCS: 76775; 76856

== ENCOUNTER 2022-12-30 09:21 | Emergency (ER) | payer OTHER, SELFPAY ==
[2022-12-30 09:22] VITALS: BP 143/96; PULSE 109; RESP 18; TEMP 36.7; O2SAT 98
[2022-12-30] MEDS: LIDOCAINE/PRILOCAINE CREAM 2.5-2.5% TUBE 1 EACH TOPICAL (09:54)
[2022-12-30] MEDS: HYDROcodone/acetaminophen (*CRX) 5-325 MG TABLET 1 TAB PO (09:54)
--- NOTE | 2022-12-30 10:11 | ED.SKABFB ---
HPI - Skin/Abscess/Foreign Bdy General Chief complaint: Skin/Abscess/Foreign Body Stated complaint: cyst on buttocks Time Seen by Provider: 12/30/22 09:27 History of Present Illness HPI narrative: Patient is a 37-year-old female with a history of recurrent pilonidal cyst here for evaluation of redness, swelling and pain to her right sacrum. Patient states the pain and swelling started about 3 days ago and has increased in size ever since. She has a history of pilonidal cyst that have been drained in the ED with success. She denies any fevers, chills, changes to her stools. Related Data Home Medications Medication Instructions Recorded Confirmed sertraline 25 mg tablet 25 mg PO DAILY 09/09/22 09/09/22 Allergies Allergy/AdvReac Type Severity Reaction Status Date / Time No Known Allergies Allergy Verified 12/30/22 09:22 Review of Systems Review of Systems: Gen.: Denies fevers or chills Eyes: Denies eye pain or visual change ENT: Denies congestion Respiratory: Denies shortness of breath or cough CV: Denies chest pain or palpitations GI: Denies abdominal pain nausea, emesis or diarrhea denies burning, urgency, frequency or hematuria Musculoskeletal: Denies back pain or muscle pain Neuro: Denies numbness, tingling, weakness or focal weakness Skin: Reports abscess Except as documented, all other systems reviewed and negative [facility] Surgical History Surgical History History of appendectomy Family History Family History Mother No pertinent past medical history Social History Social History Smoking status: Current every day smoker Substance use: never Gender identity (if verbalized by the patient): Female Sexual Orientation (if Verbalized by the Patient): Straight or Heterosexual Spiritual care concerns: No Exam Narrative: Gen: Alert, oriented, no acute distress Eyes: EOMI, no icterus Pulm: Respirations even and unlabored, symmetric thorax expansion, no audible stridor or visible cyanosis CV: Regular rate per telemetry GI: No distension, no voluntary/involuntary guarding Neuro: AOx4, moves all extremities without apparent difficulty or weakness, follows commands Skin: There is a 2 x 4 cm area of induration, fluctuance and erythema to the right pilonidal region. This area is tender to palpation. Psych: Normal mood/affect, insight/judgement good, adequate fund of knowledge, recent/remote memory intact Course Vital Signs Vital signs: Vital Signs Temperature 98.0 F 12/30/22 09:22 Pulse Rate 109 H 12/30/22 09:22 Respiratory Rate 18 12/30/22 09:22 Blood Pressure 143/96 H 12/30/22 09:22 Pulse Oximetry 98 12/30/22 09:22 Oxygen Delivery Room Air 12/30/22 09:22 Temperature 98.0 F 12/30/22 09:22 Pulse Rate 109 H 12/30/22 09:22 Respiratory Rate 18 12/30/22 09:22 Blood Pressure 143/96 H 12/30/22 09:22 Pulse Oximetry 98 12/30/22 09:22 Oxygen Delivery Room Air 12/30/22 09:22 Procedures Abscess I/D other: Date of Incision: 12/30/22 Time of Incision: 10:56 Side (if applicable): left Local Anesthetic: lidocaine 1% and with epi Amount of anesthesia used (mL): 2 Technique: incised with #15 blade and probed loculations Amount of fluid expressed (mL): 15 Irrigation: Yes Packing used?: none I&D Results: Pus and Blood MDM - Skin/Abscess/Foreign Bdy MDM Narrative Medical decision making narrative: Patient is a 37-year-old female with a history of recurrent pilonidal abscess here for evaluation of pain and swelling and induration to her right gluteal cleft consistent with pilonidal cyst. Cyst was drained with return of pus and blood, wound cultures were collected. Patient will be sent home with antibiotics and general surgery
== END 2022-12-30 11:05 | disposition home or self-care (01) ==
PROVIDERS: Emergency Provider Physician Assistant; PCP Emergency Medicine
DX: L05.01 Pilonidal cyst with abscess (principal); F17.200 Nicotine dependence, unspecified, uncomplicated
CPT/HCPCS: 10080; 87070; 87077; 87205; 99283; A9270

== ENCOUNTER 2023-01-19 11:08 | Emergency (ER) | payer OTHER, SELFPAY ==
--- NOTE | ~2023-01-19 | US_ITS ---
EXAMINATION: US pelvic complete w TV DATE: 01/19/2023 13:10 INDICATION: Abnormal vaginal bleeding Comparison:Ultrasound dated 09/15/2022 TECHNIQUE: Multiple transabdominal and endovaginal sonographic images of the pelvis performed. FINDINGS: The uterus measures 11 x 4.8 x 5.1 cm. The endometrial complex measures 3 mm. The right ovary measures 4.5 x 2.8 x 2.6 cm and the left ovary measures 3.1 x 2.4 x 1.7 cm. There is a right ovarian cyst measuring 3.5 cm. There are small follicles in each ovary. Normal doppler signal in both ovaries. There is no free fluid in the pelvis. There are no abnormal masses seen on either side. IMPRESSION: 1. Right ovarian cyst measuring 3.5 cm. Reviewed, dictated and finalized at location [facility].
[2023-01-19 11:10] VITALS: BP 146/84; PULSE 83; RESP 18; TEMP 36.6; O2SAT 97
--- NOTE | 2023-01-19 11:34 | ED.FEMALEGU ---
HPI - Female Genitourinary General Chief complaint: Vaginal Bleeding <SARAH Gaytan Last Filed: 01/19/23 13:58> Stated complaint: vaginal bleeding <SARAH Gaytan Last Filed: 01/19/23 13:58> Time Seen by Provider: 01/19/23 11:19 <Lisa Mackay PA-C - Last Filed: 01/19/23 13:58> History of Present Illness HPI Narrative: 37-year-old female with a history of a left ovarian cyst reports for evaluation of vaginal bleeding x10 days. Patient reports her menstrual cycle started on 01/09. States the first 5 days her period was gastroenterology professor, only having to change her pad every few hours. Within the past 5 days, the bleeding has increasingly worsened and states since today, she has been itching to her pad every hour. Patient also endorsing sharp intermittent suprapubic abdominal pains for the past day. Patient reports she called her natural developer at [facility] [place] and was told she cannot be evaluated until February 03 and would was advised to come to the emergency department. States her last menstrual cycle lasted 13 days. Her last bowel movement was yesterday and normal. Denies dysuria, hematuria, chest pain or shortness of breath, diarrhea, vomiting, syncope. She does endorse nausea, lightheadedness this morning and back pain which is unchanged from her baseline. <Lisa Mackay PA-C - Last Filed: 01/19/23 13:58> Related Data Home medications: Home Medications Medication Instructions Recorded Confirmed sertraline 25 mg tablet 25 mg PO DAILY 09/09/22 09/09/22 <SARAH Gaytan Last Filed: 01/19/23 13:58> Allergies/Adverse reactions: Allergies Allergy/AdvReac Type Severity Reaction Status Date / Time No Known Allergies Allergy Verified 01/19/23 11:09 <SARAH Gaytan Last Filed: 01/19/23 13:58> Review of Systems Review of Systems: CONSTITUTIONAL: Denies fever, chills EYES: Denies visual changes, redness, or discharge. ENT: Denies rhinorrhea, congestion, sore throat, or otalgia. CARDIOVASCULAR: Denies chest pain, palpitations, or edema. RESPIRATORY: Denies cough or dyspnea. GASTROINTESTINAL: See HPI GENITOURINARY: Denies dysuria or hematuria. SKIN: Denies rash or itching. MUSCULOSKELETAL: See HPI NEUROLOGIC: Denies headache, numbness, dizziness, or weakness. PSYCHIATRIC: Denies anxiety or depression. <Lisa Mackay PA-C - Last Filed: 01/19/23 13:58> [facility] Surgical History Surgical History: Surgical History History of appendectomy <Lisa Mackay PA-C - Last Filed: 01/19/23 13:58> Family History Family History: Family History Mother No pertinent past medical history <Lisa Mackay PA-C - Last Filed: 01/19/23 13:58> Social History Social History: Social History Smoking status: Current every day smoker Substance use: never Gender identity (if verbalized by the patient): Female Sexual Orientation (if Verbalized by the Patient): Straight or Heterosexual Spiritual care concerns: No <Lisa Mackay PA-C - Last Filed: 01/19/23 13:58> Exam Narrative: GENERAL: Well-appearing, in no acute distress. Patient resting comfortably in exam bed. She is pleasant and conversational. HEAD: Normocephalic EYES: PERRLA ENT: Nares clear. Mucous membranes moist. Oropharynx without tonsillar hypertrophy exudate or other lesions. Poor dentition NECK: Supple. CHEST: No respiratory distress. Clear to auscultation, no adventitious breath sounds. HEART: Regular rate and rhythm. No murmur heard. Normal peripheral pulses. ABDOMEN: Soft, normal active bowel sounds. Tenderness to the suprapubic region. No guarding or rigidity. No peritoneal signs. No overlying skin changes. No CVA tenderness. : No rashes, edema or erythema to ext
[2023-01-19] MEDS: KETOROLAC 30 MG/ML VIAL (*BKC) IV PUSH (11:51)
[2023-01-19] MEDS: ONDANSETRON INJ 4 MG/2 ML VIAL IV PUSH (11:51)
[2023-01-19] MEDS: SODIUM CHLORIDE 0.9% IV 1,000 ML 999 ML IV CONT (11:51)
[2023-01-19 12:02] LABS: Basophils Absolute Auto 0.1 K/mm3 (0.0-0.1); Basophils Percent Auto 0.7 % (0.2-1.2); Eosinophils Absolute Auto 0.9 K/mm3 (0-0.3); Hematocrit 43.8 % (37.0-47.0); Hemoglobin 14.3 g/dL (12.0-15.0); Immature Granulocyte Absolute 0.04 K/mm3 (0.00-0.031); Immature Granulocyte Percent A 0.3 % (0-0.5); Lymphocytes Absolute Auto 1.83 K/mm3 (0.9-3.2); Lymphocytes Percent Auto 14.9 % (18.3-44.2); Mean Corpuscular HGB Conc 32.6 g/dl (32-36); Mean Corpuscular Hemoglobin 29.8 pg (26-34); Mean Corpuscular Volume 91.3 fl (80-100); Mean Platelet Volume 9.4 fl (7.4-10.4); Monocytes Absolute Auto 0.6 K/mm3 (0.1-0.6); Monocytes Percent Auto 4.7 % (2.6-8.5); Neutrophils Absolute Auto 8.9 K/mm3 (1.3-6.7); Neutrophils Percent Auto 72.4 % (45.5-73.1); Platelet Count Result 300 k/mm3 (150-375); Red Cell Distribution Width 13.7 % (11.5-14.5); White Blood Count 12.3 K/mm3 (4.5-10.0)
[2023-01-19 12:08] LABS: Bacteria Urine None Seen /hpf; Non Pathogenic Casts 0-2; RBC Urine >100 /hpf (0-2); Squamous Epithelial Cell Urine None seen /hpf (Few); WBC Urine 0-5 /hpf
[2023-01-19 12:09] LABS: INR 0.9; Prothrombin Time 12.5 Seconds (11.1-14.7)
[2023-01-19 12:10] LABS: Alanine Aminotransferase 16 U/L (6-35); Alkaline Phosphatase 86 U/L (38-126); Anion Gap 5 mmol/L (8-16); Aspartate Amino Transferase 20 U/L (14-36); Bilirubin,Total 0.5 mg/dL (0.2-1.3); Blood Urea Nitrogen 8 mg/dL (7-17); Calcium 8.4 mg/dL (8.4-10.2); Carbon Dioxide 29 mmol/L (22-30); Chloride 104 mmol/L (98-107); Estimated CRCL calculation 152 ml/min; Estimated Glomerular Filt Rate > 60; Glucose 92 mg/dL (65-110); Partial Thromboplastin Time 28.4 SECONDS (22.3-36.8); Sodium 138 mmol/L (137-145)
[2023-01-19 12:14] LABS: Appearance Urine Cloudy (Clear); Bilirubin Urine Negative (Negative); Blood Urine 3+ (Negative); Glucose Urine UA Negative (Negative); Ketones Urine Negative (Negative); Leukocyte Esterase Ur Trace LEU/UL (Negative); Nitrate Urine Negative (Negative); Protein Urine 1+ mg/dL (Negative); Specific Grav Ur 1.006 (1.001-1.035); pH Urine 7.5 (5.0-9.0)
[2023-01-19 12:15] LABS: Add Urine Microscopic? YES; Color Urine Light Red (Yellow)
[2023-01-19 13:07] VITALS: BP 117/72; PULSE 66
[2023-01-19 13:08] VITALS: BP 121/76; BP 124/75; PULSE 69; PULSE 70
== END 2023-01-19 14:07 | disposition home or self-care (01) ==
PROVIDERS: Emergency Provider Physician Assistant; PCP Emergency Medicine
DX: N93.9 Abnormal uterine and vaginal bleeding, unspecified (principal); F17.200 Nicotine dependence, unspecified, uncomplicated; N83.201 Unspecified ovarian cyst, right side
CPT/HCPCS: 36415; 76830; 76856; 80053; 81001; 81025; 85025; 85610; 85730; 96361; 96374; 96375; 99284; J1885; J2405; J7030

== ENCOUNTER 2024-06-10 16:00 | Emergency (ER) | payer SELFPAY ==
[2024-06-10 16:03] VITALS: BP 136/79; PULSE 90; RESP 16; TEMP 36.2; O2SAT 100
--- NOTE | 2024-06-10 16:14 | ED.SKABFB ---
HPI - Skin/Abscess/Foreign Bdy General Chief complaint: Skin/Abscess/Foreign Body Stated complaint: pilonidal cyst Time Seen by Provider: 06/10/24 16:14 Source: patient Mode of arrival: ambulatory Limitations: no limitations History of Present Illness HPI narrative: This is a 39-year-old female patient with a history of recurrent pilonidal abscess presents with 4 day history of growing abscess pain difficulty sleeping. No perirectal involvement, no blood or pus when she defecates. Only pain when she tries to sit on the toilet or lay on her back. Patient denies history kidney problems or diabetes. She states she is relatively healthy except for these recurrent pilonidal abscesses and being overweight. Patient denies fever chills. Related Data Home Medications Medication Instructions Recorded Confirmed sertraline 25 mg tablet 25 mg PO DAILY 09/09/22 09/09/22 Allergies Allergy/AdvReac Type Severity Reaction Status Date / Time No Known Allergies Allergy Verified 06/10/24 16:25 Review of Systems Review of Systems: All systems reviewed & are unremarkable except as noted in HPI and below PMFSH Surgical History Surgical History History of appendectomy Family History Family History Mother No pertinent past medical history Social History Social History Smoking status: Current every day smoker Substance use: never Gender identity (if verbalized by the patient): Female Sexual Orientation (if Verbalized by the Patient): Straight or Heterosexual Spiritual care concerns: No Exam Narrative: GENERAL: Obese, awake, alert, in no acute distress. HEAD: Normocephalic, atraumatic. ENT:? Mucous membranes moist. CHEST: Clear to auscultation.? No respiratory distress. HEART: Regular rate and rhythm. ? Normal peripheral pulses. ABDOMEN: Soft, nontender, nondistended, obese. : Pilonidal cyst with swelling and fluctuance about 4 cm in diameter on the left side primarily, no tract to the rectum. EXTREMITIES: Normal range of motion. No peripheral edema. SKIN: Warm dry normal color NEURO: Alert and oriented x3. PSYCH: Normal mood and affect Course Vital Signs Vital signs: Vital Signs Temperature 36.2 C L 10/14/24 16:03 Pulse Rate 90 06/10/24 16:03 Respiratory Rate 16 06/10/24 16:03 Blood Pressure 136/79 06/10/24 16:03 Pulse Oximetry 100 06/10/24 16:03 Temperature 36.2 C L 06/10/24 16:03 Pulse Rate 90 06/10/24 16:03 Respiratory Rate 16 06/10/24 16:03 Blood Pressure 136/79 06/10/24 16:03 Pulse Oximetry 100 06/10/24 16:03 Procedures Abscess I/D other: Date of Incision: 06/10/24 Time of Incision: 17:20 Side (if applicable): left Sedation/analgesia: none Local Anesthetic: lidocaine 1% and with epi Amount of anesthesia used (mL): 10 Technique: incised with #11 blade Amount of fluid expressed (mL): 25 Irrigation: Yes Packing used?: none I&D Results: Pus and Blood Abcess I&D Additional Comments: Pilonidal abscess no extension to the perirectal region. 4 cm abscess large amount pus and some blood expressed. Wound culture obtained and initiated patient on Bactrim. MDM - Skin/Abscess/Foreign Bdy MDM Narrative Medical decision making narrative: This is a previously healthy 39-year-old female patient with 3 current pilonidal cyst without extension to the perirectal area. Afebrile normal vital signs. Patient is obese but otherwise healthy. She has had to have these drained numerous times but has not yet undergone surgical repair out of fear of what that would entail. She has not met with the surgeon. Patient was given Hunter for pain control prior to procedure. RN present at bedside for assistance. maribel
[2024-06-10] MEDS: HYDROcodone/acetaminophen (*CRX) 10-325 MG TABLET 1 TAB PO (17:03)
[2024-06-10] MEDS: SULFAMETHOXAZOLE/TRIMETHOPRIM 800/160 MG DS TABLET 2 TAB PO (17:51)
== END 2024-06-10 17:57 | disposition home or self-care (01) ==
PROVIDERS: Emergency Provider Nurse Practitioner; PCP Emergency Medicine
DX: L05.01 Pilonidal cyst with abscess (principal); F17.200 Nicotine dependence, unspecified, uncomplicated
CPT/HCPCS: 10060; 10080; 87070; 87205; 99283; A9270

== ENCOUNTER 2024-11-28 13:22 | Emergency (ER) | payer SELFPAY ==
[2024-11-28 13:30] VITALS: BP 141/86; PULSE 97; RESP 20; TEMP 36.8; O2SAT 100
--- OUTSIDE RECORDS SUMMARY | 2024-11-28 13:44 | XMS_ITS | Referral Summary ---
Author Organization [facility] Address [facility] [place] [address] Care Team Providers Care Butter Printer Name Role Phone Corby Bennett MD Primary Care Provider [phone] Allergies No known active allergies Medications fluticasone propionate (FLONASE) 50 mcg/actuation nasal spray SPRAY 1 SPRAY IN EACH NOSTRIL TWICE DAILY 2 Active tiZANidine (ZANAFLEX) 4 mg tablet Take 1 tablet PO HS PRN 30 tablet 2 Active Additional Information Patient not taking.Reported on 11/01/2022 meloxicam (MOBIC) 7.5 mg tablet Take 1 tablet PO BID PRN 60 tablet 2 Active sertraline (ZOLOFT) 25 mg tablet 2 Active Active Problems Problem Noted Date Diagnosed Date Chronic bilateral low back pain without sciatica 05/25/2022 Social History Tobacco Use Types Packs/Day Years Used Date Smoking Tobacco: Every Day Cigarettes 0 25 Tobacco Cessation:Ready to Q uit: Not Asked; Counseling Given: Not Answered AUDIT-C Answer Date Recorded Q1: How often do you have a drink containing alc ohol? Never 02/21/2022 Average Number of Drinks Not on file 022 Q3: How often do you have si x or more drinks on one occasion? 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
--- OUTSIDE RECORDS SUMMARY | 2024-11-28 13:44 | XMS_ITS | Clinical Summary ---
Author Organization [facility] Address [facility] [place] [address] Care Team Providers Care Pack Worker Name Role Phone Corby Bennett MD Primary Care Provider [phone] Allergies No known active allergies Medications fluticasone [...] bilateral low back pain without sciatica 05/25/2022 Surgical History Surgery Date Site/Laterality Comments APPENDECTOMY TUBAL LIGATION 08/28/2015 - 08/27/2016 Medical History Medical History Date Comments Lumbar facet arthropathy DDD (degenerative disc disease), lumbar Levoscoliosis of thoracolumbar spine Primary osteoarthritis of left hip History of compression fracture of spine-mild T1 1 BMI 40.0-44.9, adult ([facility]) 02/21/2022 Cigarette smoker Family History Medical History Relation Name Comments Arthritis Father Diabetes Father Heart disease Father Arthritis Mother Clotting disorder Mother Diabetes Mother Stroke Mother Relation Name Status Comments Father Mother Social History Tobacco Use Types Packs/Day Years [...] file Not on file Not on file Obstetrics History Last Filed Vital Signs Vital Sign Reading Time Taken Comments Blood Pressure - - Pulse - - Temperature - - Respiratory Rate - - Oxygen Saturation - - Inhaled Oxygen Concentration - - Weight 127.9 kg (282 lb) 11/01/2022 11:02 AM AUTOMATION LEAD Height 170.2 cm (5' 7 ) 11/01/2022 11:02 AM AUTOMATION LEAD Body Mass Index 44.17 11/01/2022 11:02 AM AUTOMATION LEAD Plan of Treatment Health Maintenance Due Date Last Done Comments Breast Cancer Screening-Mammogram 1983 Cervical Cancer Screening 1983 Depression Screening 1983 Hepatitis C Screening 1983 Varicella Vaccines (1 of 2 - 13+ 2-dose series) 1996 Hepatitis B Screening 2001 Regular Well Visit/Exam 18-64 2001 Pneumococcal vaccine <65 (1 of 2 - PCV) 2002 Covid-19 Vaccine (3 - 2023-2 5 season) 2024 05/13/2021, 04/15/2021 Influenza Vaccine (#1) 2024 DTaP/Tdap/Td Vaccine (2 - Td or Tdap) 04/08/2025 04/08/2015 HPV Vaccines Aged Out No longer eligi ble based on patient's age to complete this topic Insurance [facility] [place] [address] Care Teams Pack Worker Relationship Specialty Start Date End Date Corby eBnnett MD PCP - General Emergency Medicine 11/19/21
--- OUTSIDE RECORDS SUMMARY | 2024-11-28 13:45 | XMS_ITS | Data Portability ---
Author Organization [facility], [facility] Address [address] [place] [address] Assessment No assessment recorded. Plan of Treatment Reminders Order Date Submit Date Provider Last Modified By Organization Details Last Modified Time Details Appointments None recorded. Lab test, urine 2022 023 [facility], [address] [place], [address], 21:15:38 Referral None recorded. Procedures None recorded. Surgeries None recorded. Imaging None recorded. Medication Orders None recorded. Patient TargetsNo targets recorded. Patient InstructionsNo instructions recorded. Reason for Referral None Reported. Results Created Date Observation Date Name Description Value Unit Range Abnormal Flag Note LastModifiedBy Organization Detail LastModifiedTime 09/14/1909/14/2022 pregn jamal test, urine HCG negati ve Not Available [facility] [address] [place], [address], 09/14/2022 13:11:14 11/08/19 23 09/15/2022 US, peldee s No observ ation record ed. [address] [facility] [address], [place], [address], 11/07/2022 16:41:43 Result Notes None recorded. Problems No Known Problems Procedures Surgical History Date Name Laterality Status Provider Name and Address Organization Details Recorded Time 02/17/20 Date of Last Pap Smear completed Lily Donahue [facility] 09/14/2022 12:19:22 Appendectomy completed Lily Donahue [facility] 09/14/2022 12:19:40 Imaging Results Imaging Date Name Status LastModified by Organiz ation Details LastModified Time 09/15/2022 [email or web address] [address], [place], [address], 11/07/2022 16:41:43 Procedure Notes None recorded. Medical Equipment None Reported. Allergies No known drug allergies Medications Name Sig Start Date Stop Date Status Note LastModified by Organization Details LastModified Time doxycycline hyclate 100 mg capsule TAKE 1 CAPSULE BY MOUTH TWICE DAILY active Not Available Not Available No t Available azithromyci n 250 mg tablet TAKE 2 TABLETS BY MOUTH FOR 1 DAY THEN TAKE 1 TABLET BY MOUTH DAILY FOR 4 DAYS 09/14 completed Not Available Not Available Not Available tizanidine 4 mg tablet TAKE 1 TABLET BY MOUTH AT BEDTIME NEEDED 09/14 completed Not Available Not Available Not Available meloxicam 7.5 mg tablet TAKE 1 TABLET BY MOUTH TWICE DAILY NEEDED active Not Available Not Available No t Available paroxetine 20 mg tablet active Not Available Not Available Not Available sertraline 25 mg tablet active Not Available Not Available Not Available ergocalcife rol (vitamin D2) 1,250 mcg (50,000 unit) capsule TAKE 1 CAPSULE BY MOUTH WEEKLY 09/14 completed Not Available Not Available Not Available methylpredn isolone 4 mg tablets in a dose pack FOLLOW PACKAGE DIRECTION S 09/14 completed Not Available Not Available Not Available albuterol sulfate HFA 90 mcg/actuati on aerosol inhaler INHALE 2 PUFFS BY MOUTH EVERY 4 HOURS NEEDED 09/14 completed Not Available Not Available Not Available cefdinir 300 mg capsule 09/14 completed Not Available Not Available Not Available fluticasone propionate 50 mcg/actuati on nasal spray,suspe nsion SPRAY 1 SPRAY IN EACH NOSTRIL TWICE DAILY 09/14 completed Not Available Not Available Not Available Wal-itin D 10 mg-240 mg tablet,exte nded release TAKE 1 TABLET BY MOUTH EVERY DAY NEEDED. 09/14 completed Not Available Not Available Not Available ID NOW COVID-19 Test Kit TEST DIRECTED TODAY 09/14 completed Not Available Not Available Not Available Vitals Date Recorded Body height Body mass index (BMI) Body weight Body temperature Systolic blood pressure Diastolic blood pressure Provider Name and Address Organization Details Last Updated DateTime 3 170.18 cm 45.1 kg/m2 830141. 32 g 98 [degF] 122 mm[Hg] 82 mm[Hg] Lily Donahue [facility] 3 12:25:22 Social History Question Answer Notes LastModified by Organizat ion Details LastModified Time Tobacco Smoking Status Current Every Day Smoker Lily Donahue null, [facility] 09/14/2022 12:19:28 What Is Your Level Of Alcohol Consumption? None [email or web address] Information not available 09/14/2022 What Type Of Diet Are You Following? REGULAR [email or web address] Information not available 09/14/2022 Do You Or Have You Ever Used E-cigarettes Or Vape? Never Used Electronic Cigarettes [email or web address] Information not available 09/14/2022 What Is Your Relationship Status? [email or web address] Information not available 09/14/2022 Are You Sexually Active? Yes [email or web address] Information not available 09/14/2022 At What Age Did You Start Smoking Tobacco? 14 [email or web address] Information not available 09/14/2022 How Much Tobacco Do You Smoke? 0.5 PPD [email or web address] Information not available 09/14/2022 How Many Years Have You Smoked Tobacco? 19 [email or web address] Information not available 09/14/2022 Sex: Unknown Functional Status Question Answer Note LastModified by Organization D etails LastModified Time What is your exercise level? None [email or web address] Information not available 09/14/2022 Mental Status None recorded. Family History Nothing Reported. Medical History No medical history recorded. Gynecological History Statement/Question Response Flow Heavy Date of LMP 08/21/2022 Frequency of Cycle (Q days) 26 Date of Last Pap Smear 02/16/2022 Duration of Flow (days) 4-7 Age at Menarche 11 Obstetrics History GPAL:G 0 P 0 0 0 0 Past Encounters Encounter ID Performer Location Encounter Start Date Encounter Closed Date Diagnosis/Indication Diagnosis SNOMED-CT Code Diagnosis ICD10 Code Diagnosis Note [id number] TYRONE CAMILO DO [facility] [address] [place] [address] 09/14/2022 12:17:12 09/27/2022 12:39:24 Disorder of menstruation 489871973 N92.6 h/o salpingect adams but bleeding with pelvic pain after having period on 08/21. Cyst of ovary 46890844 N 83.209 release US records to discuss monitoring vs cystectomy ovarian torsion precaution s given Secondary amenorrhea 156 356254 N91.1 Health Concerns Section Related Observation LastModified by Organization Detai ls LastModified Time None Recorded Concern Status LastModified by Organization Details LastModified Time None Recorded Advance Directives Directive None Recorded Payers Encounter Date Sequence Insurance Name Policy Number Policy Renteria Covered Member ID Renteria Member ID Guarantor Name 09/14/2022 1 [place] [facility] Niyah Hernandez [id number] Niyah Hernandez Notes Date Note Type Note Provider Name and Address Organization Details Recorded Time 09/14/2022 text/html Niyah 37 y/o presents for ovarian cyst consult.Pt reports going the ER 09/09/22 for left ovarian cyst. Pt symptoms pelvic pain and pressure and bleeding for more week now.Pt had US done in the [place] [facility] [place], [place] Provider is Dr. Corby Bennett Phone number [phone] thought had UTI because of vaginal pressure, dysuria, and sharp pain. Went to see PCP and was told she didn't have a UTI but maybe kidney stones. they did an US and noted an ovarian cysts. menstrual cycle: usually monthly at the same time. last 4-7 days. TYRONE CAMILO, [address] [facility], [place], [address], [facility] 09/21/2022 16:25:07 OBGyn Episode No OBEpisode recorded.
--- OUTSIDE RECORDS SUMMARY | 2024-11-28 13:45 | XMS_ITS | Clinical Summary ---
Author Organization [facility] Melinda paris [facility] Address [address] [place] [place] [address] Care Team Providers Care Vp Compliance Name Role Phone Unavailable Primary Care Provider Unavailabl e Medications No known medications Active Problems No known active problems Family History Medical History Relation Name Comments No Known Problems Daughter 1 No Known Problems Daughter 2 Diabetes Father Heart Disease Father Diabetes Mother Heart Disease Mother No Known Problems Son 1 No Known Problems Son 2 Relation Name Status Comments Daughter 1 Alive Daughter 2 Alive Father Alive Mother Alive Son 1 Alive Son 2 Alive Social History Tobacco Use Types Packs/Day Years Used Date Smoking Tobacco: Every Day Cigarettes 0.5 20 Smokeless Tobacco: Never Alcohol Use Standard Drinks/Week Comments Never 0 (1 standard drink = 0.6 oz pur e alcohol) Comments Unknown Sex and Gender Information Value Date Recorded Sex Assigned at Not on file 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 Gender Identity Not on file Sexual Orientation Not on file Last Filed Vital Signs Vital Sign Reading Time Taken Comments Blood Pressure 126/77 11/22/2022 3:07 PM CDT Pulse 77 11/22/2022 3:07 PM CDT Temperature 36.4 C (97.5 F) 11/22/2022 3:07 PM CDT Respiratory Rate - - Oxygen Saturation 99% 11/22/2022 3:07 PM CDT Inhaled Oxygen Concentration - - Weight 131.5 kg (290 lb) 11/22/2022 3:07 PM CDT Height 173.7 cm (5' 8.4 ) 11/22/2022 3:07 PM CDT Body Mass Index 43.58 11/22/2022 3:07 PM CDT Plan of Treatment Health Maintenance Due Date Last Done Comments PNEUMOCOCCAL VACCINE 0-49 YE ARS (1 of 2 - PCV) 1989 DTAP/TDAP/TD VACCINES (1 - Tdap) 2002 HEPATITIS B VACCINES (1 of 3 - 19+ 3-dose series) 2002 HPV/Cotest (21-29) 2004 CERVICAL CANCER SCREENING 2013 HPV/Cotest (30-65) 2013 PAP SMEAR 2013 BREAST CANCER SCREENING 2023 INFLUENZA VACCINE (#1) 2024 HPV VACCINES Aged Out No longer eligi ble based on patient's age to complete this topic Insurance
--- OUTSIDE RECORDS SUMMARY | 2024-11-28 14:16 | XMS_ITS | Clinical Summary ---
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
--- OUTSIDE RECORDS SUMMARY | 2024-11-28 14:16 | XMS_ITS | Referral Summary ---
Author Organization [facility] Address [facility] [place] [address] Care Team Providers Care Teacher Aide Clerical Name Role Phone Corby Bennett MD Primary Care Provider [phone] Allergies No known active allergies Medications fluticasone [...] 127.9 kg (282 lb) 11/01/2022 11:02 AM MILL OILER Height 170.2 cm (5' 7 ) 11/01/2022 11:02 AM MILL OILER Body Mass Index 44.17 11/01/2022 11:02 AM MILL OILER Plan of Treatment Not on file Insurance Care Teams Teacher Aide Clerical Relationship Specialty Start Date End Date Corby Bennett MD PCP - General Emergency Medicine 11/19/21
--- OUTSIDE RECORDS SUMMARY | 2024-11-28 14:16 | XMS_ITS | Clinical Summary ---
Author Organization [facility] Address [facility] [place] [address] Care Team Providers Care Plant Accountant Name Role Phone Corby Bennett MD Primary Care Provider [phone] Allergies No known active allergies Medications fluticasone [...] of spine-mild T1 1 BMI 40.0-44.9, adult ([facility]) 02/21/2022 Cigarette smoker Family History Medical History [...] 127.9 kg (282 lb) 11/01/2022 11:02 AM SAMPLE SHOE INSPECTOR AND REWORKER Height 170.2 cm (5' 7 ) 11/01/2022 11:02 AM SAMPLE SHOE INSPECTOR AND REWORKER Body Mass Index 44.17 11/01/2022 11:02 AM SAMPLE SHOE INSPECTOR AND REWORKER Plan of Treatment Health Maintenance Due Date [...] patient's age to complete this topic Insurance [facility] [place] [place] [address] Care Teams Plant Accountant Relationship Specialty Start Date End Date Corby Bennett MD PCP - General Emergency Medicine 11/19/21
--- NOTE | 2024-11-28 14:28 | PC.NURSE ---
md at bedside at this time
--- NOTE | 2024-11-28 14:35 | ED_ITS ---
HPI - General Adult General Chief complaint: Skin/Abscess/Foreign Body Stated complaint: Abcess Time Seen by Provider: 11/28/24 13:37 History of Present Illness HPI narrative: Patient is a 39-year-old female who presents ER with pilonidal abscess. Left cheek at the gluteal cleft. Swelling over last 4 days. No drainage. Increased pain with sitting. Has had multiple drainages of similar abscess in the past. Unable follow-up with general surgery. Related Data Home Medications ?Medication ?Instructions ?Recorded ?Confirmed ?Last Taken ?Type sertraline 25 mg tablet 25 mg PO DAILY 09/09/22 09/09/22 Unknown History Allergies Allergy/AdvReac Type Severity Reaction Status Date / Time No Known Allergies Allergy Verified 11/28/24 13:23 Review of Systems Constitutional: Constitutional: Reports no additional constitutional complaints Integumentary/Breasts: Skin/Breast: Reports system reviewed and no additional complaints, except as docu ON LICENSE OF [facility] Surgical History Surgical History History of appendectomy Family History Family History Mother No pertinent past medical history Social History Social History Smoking status: Current every day smoker Substance use: never Gender identity (if verbalized by the patient): Female Sexual Orientation (if Verbalized by the Patient): Straight or Heterosexual Spiritual care concerns: No Exam Narrative: GENERAL: Well-appearing, morbidly obese, and in no acute distress. HEAD: Normocephalic, atraumatic. ENT: Mucous membranes moist. EXTREMITIES: Normal range of motion. No edema. SKIN: Warm, dry, no rash. Pilonidal cyst at the gluteal cleft more on the patient's left side. 4 cm x 3 cm without cellulitis. NEURO: Alert and oriented x3. PSYCH: Normal mood and affect. Course Course Emergency Course: Abscess drained and packed. Discharge. Vital Signs Vital signs: Vital Signs Temperature 98.2 F 11/28/24 13:30 Pulse Rate 97 11/28/24 13:30 Respiratory Rate 20 11/28/24 13:30 Blood Pressure 141/86 H 11/28/24 13:30 Pulse Oximetry 100 11/28/24 13:30 Oxygen Delivery Room Air 11/28/24 13:30 Temperature 98.2 F 11/28/24 13:30 Pulse Rate 97 11/28/24 13:30 Respiratory Rate 20 11/28/24 13:30 Blood Pressure 141/86 H 11/28/24 13:30 Pulse Oximetry 100 11/28/24 13:30 Oxygen Delivery Room Air 11/28/24 13:30 Procedures Abscess I/D other: Date of Incision: 11/28/24 Time of Incision: 14:36 Local Anesthetic: lidocaine 1% and with epi Amount of anesthesia used (mL): 5 Technique: incised with #11 blade Packing used?: iodoform I&D Results: Pus Medical Decision Making Vital Signs Vital Signs: Vital Signs Temperature 98.2 F 11/28/24 13:30 Pulse Rate 97 11/28/24 13:30 Respiratory Rate 20 11/28/24 13:30 Blood Pressure 141/86 H 11/28/24 13:30 Pulse Oximetry 100 11/28/24 13:30 Oxygen Delivery Room Air 11/28/24 13:30 Temperature 98.2 F 11/28/24 13:30 Pulse Rate 97 11/28/24 13:30 Respiratory Rate 20 11/28/24 13:30 Blood Pressure 141/86 H 11/28/24 13:30 Pulse Oximetry 100 11/28/24 13:30 Oxygen Delivery Room Air 11/28/24 13:30 Discharge Plan Discharge Clinical Impression: Pilonidal abscess Patient Disposition: Home, Self-Care Condition: Stable Instructions: Antibiotic Form Additional Instructions: Remove your packing in 2 days. Return the ER if you have increased pain, fever over 100.4? F, or additional concerns. Patient Language: Tajik Prescriptions: New sulfamethoxazole-trimethoprim [Bactrim DS] 800-160 mg tablet 1 tablet PO Q12H Qty: 14 0RF No Action sulfamethoxazole-trimethoprim [Bactrim DS] 800-160 mg tablet 1 tablet PO Q12H Qty: 20 0RF sertraline 25 mg Tablet 25 mg PO DAILY ondansetron 4 mg tablet,disintegrating 4 mg PO Q8H Qty: 14 0RF Follow-up/Referrals: Corby Bennett MD [Primary Care Provider] - 1 Week Ang Nicole MD [Physician] - 1 Week
== END 2024-11-28 14:52 | disposition home or self-care (01) ==
PROVIDERS: Emergency Provider Emergency Medicine; PCP Emergency Medicine
DX: L05.01 Pilonidal cyst with abscess (principal); F17.200 Nicotine dependence, unspecified, uncomplicated
CPT/HCPCS: 10080; 99283